=== PATIENT | female | born 1995 | race Caucasian/White ===

== ENCOUNTER 2016-02-24 19:42 | Emergency (ER) | payer BC ==
[~2016-02-24] VITALS: Ht 170.2 cm; Wt 117.9 kg
[~2016-02-24 19:42] MED LIST: ACHD5005 PO; CYCL10TA9 PO; HYDR-3730 PO; ONDA4TAB11 PO; ONDA4TAB8 PO; PANT40SU PO; SUCR1ORA5 PO; SULF1TAB38 PO
[2016-02-24] MEDS ORDERED: PANT40TA3 (19:57)
[2016-02-24] MEDS ORDERED: ESCI20TA45 (19:57)
--- NOTE | 2016-02-24 20:30 | ED Abdominal Pain ---
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 Patient does report nausea without vomiting. Denies diarrhea. States she has had several constipated stools and has had increased pain with bowel movements. She thinks that she may have seen a small amount of blood on the toilet paper with wiping with her last bowel movement. Timing/Duration: 1 Hour, Resolved Prior to Arrival (pain resolved prior to arrival) Severity/Quality: Cramping Location: Periumbilical Radiation: No Radiation Activities at Onset: None Modifying Factors: Worsens With Other (pain resolved on its own) Allergies and Home Medications Allergies Coded Allergies: sertraline HCl (Unverified Allergy, Unknown, HIVES, 12/27/14) Home Medications Escitalopram Oxalate 20 Mg Tablet #30 (Reported) Ondansetron 8 Mg Tab.rapdis #10 8 MG PO Q6H PRN PRN NAUSEA/VOMITING Prescribed by: CHRIS HEATH on 02/24/162142 Pantoprazole Sodium 40 Mg Tablet. #30 (Reported) Review of Systems Constitutional: No chills, No diaphoresis, No dizziness, No fever, No malaise Respiratory: No Symptoms Reported Cardiovascular: No Symptoms Reported Gastrointestinal: See HPIDenies Abdomen Distended, Abdominal Pain ConstipatedDenies Diarrhea, NauseaDenies Poor Appetite, Denies Poor Fluid Intake, Denies Vomiting, Other (possible blood on the toilet paper with wiping) Genitourinary: Denies Burning, Denies Discharge, Denies Frequency, Denies Flank Pain, Denies Hematuria, Denies Pain Musculoskeletal: no symptoms reported Skin: no symptoms reported Psychiatric/Neurological: No Symptoms Reported All Other Systems Reviewed Negative Unless Noted: Yes (Negative excepted noted.) Past Twdfthq-Jnuymw-Fwpvws Hx Patient Social History Alcohol Use: Denies Use Recreational Drug Use: No Smoking Status: Never a Smoker 2nd Hand Smoke Exposure: Yes Recent Foreign Travel: No Contact w/Someone Who Travel: No Recent Infectious Disease Expo: No Recent Hopitalizations: No Physical Abuse Screen: No Sexual Abuse: No Surgeries HX Surgeries: Yes (PILONIDAL CYST/ABSCESS) Surgeries: Adenoidectomy, Gallbladder, Tonsillectomy Respiratory Hx Respiratory Disorders: No Cardiovascular Hx Cardiac Disorders: No Neurological Hx Neurological Disorders: No Reproductive System Hx Reproductive Disorders: No Sexually Transmitted Disease: No HIV/AIDS: No Female Reproductive Disorders: Denies Genitourinary Hx Genitourinary Disorders: No Gastrointestinal Hx Gastrointestinal Disorders: Yes Gastrointestinal Disorders: Gastroesophageal Reflux, Gall Bladder Disease Musculoskeletal Hx Musculoskeletal Disorders: No Endocrine Hx Endocrine Disorders: No HEENT HX ENT Disorders: No HEENT Disorders: Tonsilitis Cancer Hx Cancer: No Psychosocial Hx Psychiatric Problems: Yes Behavioral Health Disorders: Anxiety, Depression Integumentary HX Skin/Integumentary Disorder: No Blood Transfusions Hx Blood Disorders: No Adverse Reaction to a Blood Tr: No Reviewed Nursing Assessment Reviewed/Agree w Nursing PMH: Yes Family Medical History Significant Family History: No Pertinent Family Hx Physical Exam Vital Signs Capillary Refill : Less Than 3 Seconds General Appearance: WD/WN no apparent distress Respiratory: lungs clear normal breath sounds no respiratory distress Cardiovascular: regular rate, rhythm no murmur Gastrointestinal: normal bowel sounds non tender (unable to reproduce tenderness on exam) soft no organomegalyNo distended Rectal: deferred (patient refused rectal exam) Extremities: normal inspection normal capillary refill Back: normal inspection no CVA tenderness Neurologic/Psychiatric: alert normal mood/affect oriented x 3 Skin: normal color warm/dry Progress/Results/Core Measures Results/Orders Lab Results Laboratory Tests Test 02/24/16 20:05 02/24/16 20:13 Range/Units Alanine Aminotransferase (ALT/SGPT) 26 0-55 U/L Albumin 4.1 3.2-4.5 G/DL Alkaline Phosphatase 77 40-136 U/L Anion Gap 12 5-14 MMOL/L Aspartate Amino Transf (AST/SGOT) 19 5-34 U/L BUN/Creatinine Ratio 11 Basophils # (Auto) 0.0 0.0-0.1 10^3/uL Basophils (%) (Auto) 0 0-10 % Blood Urea Nitrogen 8 7-18 MG/DL Calcium Level 9.1 8.5-10.1 MG/DL Carbon Dioxide Level 21 21-32 MMOL/L Chloride Level 108 H 98-107 MMOL/L Creatinine 0.71 0.60-1.30 MG/DL Eosinophils # (Auto) 0.1 0.0-0.3 10^3/uL Eosinophils (%) (Auto) 1 0-10 % Estimat Glomerular Filtration Rate > 60 Glucose Level 116 H 70-105 MG/DL Hematocrit 40 35-52 % Hemoglobin 13.6 11.5-16.0 G/DL Lipase 28 8-78 U/L Lymphocytes # (Auto) 3.4 1.0-4.0 X 10^3 Lymphocytes (%) (Auto) 36 12-44 % Mean Corpuscular Hemoglobin 28 25-34 PG Mean Corpuscular Hemoglobin Concent 34 32-36 G/DL Mean Corpuscular Volume 83 80-99 FL Mean Platelet Volume 10.0 7.4-10.4 FL Monocytes # (Auto) 0.6 0.0-1.0 X 10^3 Monocytes (%) (Auto) 7 0-12 % Neutrophils # (Auto) 5.3 1.8-7.8 X 10^3 Neutrophils (%) (Auto) 56 42-75 % Platelet Count 338 130-400 10^3/uL Potassium Level 3.9 3.6-5.0 MMOL/L Red Blood Count 4.86 4.35-5.85 10^6/uL Red Cell Distribution Width 12.9 10.0-14.5 % Sodium Level 141 135-145 MMOL/L Total Bilirubin 0.1 0.1-1.0 MG/DL Total Protein 7.5 6.4-8.2 G/DL White Blood Count 9.5 4.3-11.0 10^3/uL Urine Amorphous Sediment LARGE DILCIA PHOSPHATE H /LPF Urine Bacteria TRACE /HPF Urine Bilirubin NEGATIVE NEGATIVE Urine Casts NONE /LPF Urine Clarity SLIGHTLY CLOUDY Urine Color YELLOW Urine Crystals PRESENT H /LPF Urine Culture Indicated NO Urine Glucose (UA) NEGATIVE NEGATIVE Urine Ketones NEGATIVE NEGATIVE Urine Leukocyte Esterase NEGATIVE NEGATIVE Urine Mucus NEGATIVE /LPF Urine Nitrite NEGATIVE NEGATIVE Urine Protein NEGATIVE NEGATIVE Urine RBC NONE /HPF Urine RBC (Auto) NEGATIVE NEGATIVE Urine Specific [place] 1.015 L 1.016-1.022 Urine Squamous Epithelial Cells RARE /HPF Urine Urobilinogen NORMAL NORMAL MG/DL Urine WBC RARE /HPF Urine pH 7 5-9 CHRIS Marinelli Cbc With Automated Diff (02/24/16 20:39) Comprehensive Metabolic Panel (02/24/16 20:39) Lipase (02/24/16 20:39) Saline Lock/Iv-Start (02/24/16 20:39) Ondansetron Injection (Zofran Injectio (02/24/16 20:45) Ns Iv 1000 Ml (Sodium Chloride 0.9%) (02/24/16 20:39) Ua Culture If Indicated (02/24/16 21:08) Iv Push Other Spatial Scientist Ed (02/24/16 ) Medications Given in ED Vital Signs/I&O Blood Pressure Mean: 108 Point of Care Testing Urine -Bedside: Negative Departure Communication Progress Notes Patient seen and evaluated. All laboratory findings discussed with the patient. Patient is directed follow-up with primary care physician for recheck. Patient is also advised to discuss needing possible rectal exam versus colonoscopy as an outpatient with her primary care physician. Patient voices understanding and agrees with the treatment plan. Impression Impression: Primary Impression: Abdominal pain Qualified Code: R10.33 - Periumbilical pain Additional Impression: Nausea & vomiting Qualified Code: R11.2 - Nausea with vomiting, unspecified Disposition: 01 HOME, SELF-CARE Condition: Improved Departure-Patient Inst. Decision time for Depature: 21:41 Referrals: CHER CAMPBELL MD (PCP/Family) Primary Care Physician Patient Instructions: Acute Abdomen (Belly Pain), Adult (DC), Nausea and Vomiting, Adult (DC) Add. Discharge Instructions: All discharge instructions reviewed with patient and/or family. Voiced understanding. Medications as instructed. Tylenol [id number] as directed for pain or fever. Ibuprofen 800 mg by mouth every 8 hours as needed for pain or fever. Push fluids. Clear liquid diet until symptoms improve, then increase diet slowly to a bland, low-fat diet. Follow-up with family practitioner for recheck. Return to the emergency department for worsened symptoms or any other concerns. Scripts Ondansetron (Ondansetron Odt)8 Mg Tab.rapdis8 Mg PO Q6H PRN NAUSEA/VOMITING #10 TAB Ref 0 Prov:CHRIS HEATH 02/24/16 CHRIS HEATH Feb 24, 2016 20:30 TAB Ref 0 Prov:CHRIS HEATH 02/24/16 CHRIS HEATH Feb 24, 2016 20:30
[2016-02-24] MEDS ORDERED: NS IV 1000 ML 1,000 ML IV ONE (20:39)
[2016-02-24 20:44] LABS: BASOPHILS % (AUTO) 0 % (0-10); EOSINOPHILS # (AUTO) 0.1 10^3/uL (0.0-0.3); EOSINOPHILS % (AUTO) 1 % (0-10); LYMPHOCYTES # (AUTO) 3.4 X 10^3 (1.0-4.0); LYMPHOCYTES % (AUTO) 36 % (12-44); MEAN CORPUSCULAR HEMOGLOBIN 28 PG (25-34); MEAN CORPUSCULAR HGB CONC 34 G/DL (32-36); MEAN CORPUSCULAR VOLUME 83 FL (80-99); MONOCYTES # (AUTO) 0.6 X 10^3 (0.0-1.0); MONOCYTES % (AUTO) 7 % (0-12); NEUTROPHILS # (AUTO) 5.3 X 10^3 (1.8-7.8); NEUTROPHILS % (AUTO) 56 % (42-75); PLATELET COUNT 338 10^3/uL (130-400); RED BLOOD COUNT 4.86 10^6/uL (4.35-5.85); RED CELL DISTRIBUTION WIDTH 12.9 % (10.0-14.5); WHITE BLOOD COUNT 9.5 10^3/uL (4.3-11.0)
[2016-02-24] MEDS ORDERED: ONDANSETRON 4 MG/2 ML (SDV) Z0FRAN IVP ONE (20:45)
[2016-02-24 20:58] LABS: ALANINE AMINOTRANSFERASE 26 U/L (0-55); ALBUMIN 4.1 G/DL (3.2-4.5); ANION GAP 12 MMOL/L (5-14); ASPARTATE AMINO TRANSFERASE 19 U/L (5-34); BILIRUBIN,TOTAL 0.1 MG/DL (0.1-1.0); BLOOD UREA NITROGEN 8 MG/DL (7-18); BUN/CREATININE RATIO 11; CALCIUM 9.1 MG/DL (8.5-10.1); CARBON DIOXIDE 21 MMOL/L (21-32); CHLORIDE 108 MMOL/L (98-107); CREATININE SERUM 0.71 MG/DL (0.60-1.30); GFR ESTIMATED > 60; GLUCOSE 116 MG/DL (70-105); LIPASE 28 U/L (8-78); POTASSIUM 3.9 MMOL/L (3.6-5.0); SODIUM 141 MMOL/L (135-145); TOTAL PROTEIN 7.5 G/DL (6.4-8.2)
[2016-02-24 21:15] LABS: PH,URINE 7 (5-9)
[2016-02-24 21:16] LABS: BILIRUBIN,URINE NEGATIVE (NEGATIVE); KETONES,URINE NEGATIVE (NEGATIVE); LEUKOCYTE ESTERASE ,URINE NEGATIVE (NEGATIVE); NITRITE,URINE NEGATIVE (NEGATIVE); PROTEIN,URINE NEGATIVE (NEGATIVE); UROBILINOGEN,URINE NORMAL (NORMAL)
[2016-02-24 21:32] LABS: SQUAMOUS EPITHELIAL CELL,UR RARE /HPF; WBC,URINE RARE /HPF
[2016-02-24] MEDS ORDERED: ONDA8TAB13 PO (21:43)
[2016-02-24 21:56] VITALS: BP 131/89
== END 2016-02-24 21:56 | disposition home or self-care (01) ==
LOC: EDUNIT# 19:42 → ER 19:44
DX: R10.33 Periumbilical pain (principal); R11.2 Nausea with vomiting, unspecified
CPT/HCPCS: 36415; 80053; 81000; 83690; 84703; 85025; 96361; 96374

== ENCOUNTER 2018-12-27 06:46 | Emergency (ER) | payer SELFPAY ==
[~2018-12-27] VITALS: Ht 170 cm; Wt 128.7 kg
[~2018-12-27 06:46] MED LIST changes: +ESCI20TA45; +ONDA8TAB13 PO; +PANT40TA3
--- NOTE | 2018-12-27 07:06 | ED General ---
General Chief Complaint: Abdominal/GI Problems Stated Complaint: ABD PAIN Source of Information: Patient History of Present Illness Date Seen by Provider: Dec 27, 2018 Time Seen by Provider: 07:05 Initial Comments PT ARRIVES VIA POV FROM HOME C/O LOWER ABDOMINAL PAIN SINCE 0500 THIS AM STATES SHE HAD A BM AROUND 0500, BUT "COULDN'T GET IT ALL OUT" STATES SHE SPRAYED WATER INTO HER RECTUM WITH A SHOWER HOSE--REMOVED THE SHOWER HEAD FIRST, HAD HAD A SOFT, SMALL BM JUST PRIOR TO ARRIVAL STATES SHE HAD LOWER ABDOMINAL PAIN AND "STARTED FREAKING OUT" SO CAME TO ER STATES SHE "READ SOMETHING SOMEWHERE" NO NAUSEA/VOMITING NO URINARY SYMPTOMS LMP WAS SOMETIME IN NOVEMBER, NO CONTROL PCP: JOSH, DR. CAMPBELL Allergies and Home Medications Allergies Coded Allergies: sertraline HCl (Unverified Allergy, Unknown, HIVES, 12/27/14) Home Medications Hyoscyamine Sulfate 0.125 Mg Tab.subl, 1-2 TAB SL Q4H Prescribed by: BRE DOHERTY on 12/27/18 0924 Ondansetron 8 Mg Tab.rapdis, 8 MG PO Q6H PRN for NAUSEA/VOMITING Prescribed by: CHRIS HEATH on 02/24/16 2143 Patient Home Medication List Home Medication List Reviewed: Yes Review of Systems Review of Systems Constitutional: no symptoms reported; No fever Respiratory: no symptoms reported Cardiovascular: no symptoms reported Gastrointestinal: see HPI, abdominal pain, constipation; No nausea, No vomiting Genitourinary: no symptoms reported : No LMP: Dec 10, 2018 Musculoskeletal: no symptoms reported Skin: no symptoms reported Psychiatric/Neurological: No Symptoms Reported Hematologic/Lymphatic: No Symptoms Reported Immunological/Allergic: no symptoms reported Past Pwohmco-Cjrief-Ubtpze Hx Patient Social History Alcohol Use: Rarely Uses Recreational Drug Use: No Smoking Status: Never a Smoker 2nd Hand Smoke Exposure: Yes Recent Foreign Travel: No Contact w/Someone Who Travel: No Recent Hopitalizations: No Past Medical History Surgeries: Yes (PILONIDAL CYST/ABSCESS REMOVED) Adenoidectomy, Gallbladder, Tonsillectomy Respiratory: No Cardiac: No Neurological: No : No Reproductive Disorders: No Female Reproductive Disorders: Denies Sexually Transmitted Disease: No HIV/AIDS: No Genitourinary: No Gastrointestinal: Yes (S/P OC) Gastroesophageal Reflux, Gall Bladder Disease Musculoskeletal: No Endocrine: Yes (MORBID OBESITY) HEENT: Yes (S/P T&A) Tonsilitis Cancer: No Psychosocial: Yes Anxiety, Depression Integumentary: Yes (PILONIDAL CYST/ABSCESS REMOVED) Adverse Reaction/Blood Tranf: No Family Medical History No Pertinent Family Hx Physical Exam Vital Signs Vital Signs - First Documented 12/27/18 07:05 Temp 36.0 Pulse 116 Resp 18 B/P (MAP) 134/93 (107) Pulse Ox 99 Capillary Refill : Height, Weight, BMI Height: 5'7" Weight: 260lbs. oz. 117.541672ux; 43.76 BMI Method:Stated General Appearance: No Apparent Distress, Obese (MORBIDLY), Other (WALKS UPRIGHT AND MOVES WITHOUT DIFFICULTY. DOES NOT APPEAR TO BE IN ANY DISCOMFORT OR DISTRESS) HEENT: PERRL/EOMI Neck: Full Range of Motion Respiratory: Normal Breath Sounds, No Respiratory Distress Cardiovascular: Regular Rate, Rhythm, No Murmur Gastrointestinal: Soft, Tenderness (MILD SUPRAPUBIC TENDERNESS) Back: No CVA Tenderness Extremity: Normal Inspection Neurologic/Psychiatric: Alert, Oriented x3, No Motor/Sensory Deficits, fence builder II- XII Norm as Tested Skin: Normal Color, Warm/Dry Progress/Results/Core Measures Suspected Sepsis SIRS Temperature: Pulse: Respiratory Rate: Laboratory Tests 12/27/18 07:23: White Blood Count 8.7 Blood Pressure / Mean: Laboratory Tests 12/27/18 07:23: Creatinine 0.77, Platelet Count 295, Total Bilirubin 0.3 Results/Orders Lab Results Laboratory Tests Test 12/27/18 07:23 12/27/18 07:29 Range/Units White Blood Count 8.7 4.3-11.0 10^3/uL Red Blood Count 4.79 4.35-5.85 10^6/uL Hemoglobin 13.2 11.5-16.0 G/DL Hematocrit 40 35-52 % Mean Corpuscular Volume 83 80-99 FL Mean Corpuscular Hemoglobin 28 25-34 PG Mean Corpuscular Hemoglobin Concent 33 32-36 G/DL Red Cell Distribution Width 12.9 10.0-14.5 % Platelet Count 295 130-400 10^3/uL Mean Platelet Volume 9.8 7.4-10.4 FL Neutrophils (%) (Auto) 66 42-75 % Lymphocytes (%) (Auto) 26 12-44 % Monocytes (%) (Auto) 8 0-12 % Eosinophils (%) (Auto) 1 0-10 % Basophils (%) (Auto) 0 0-10 % Neutrophils # (Auto) 5.7 1.8-7.8 X 10^3 Lymphocytes # (Auto) 2.2 1.0-4.0 X 10^3 Monocytes # (Auto) 0.7 0.0-1.0 X 10^3 Eosinophils # (Auto) 0.0 0.0-0.3 10^3/uL Basophils # (Auto) 0.0 0.0-0.1 10^3/uL Sodium Level 140 135-145 MMOL/L Potassium Level 4.0 3.6-5.0 MMOL/L Chloride Level 107 98-107 MMOL/L Carbon Dioxide Level 24 21-32 MMOL/L Anion Gap 9 5-14 MMOL/L Blood Urea Nitrogen 11 7-18 MG/DL Creatinine 0.77 0.60-1.30 MG/DL Estimat Glomerular Filtration Rate > 60 BUN/Creatinine Ratio 14 Glucose Level 115 H 70-105 MG/DL Calcium Level 9.4 8.5-10.1 MG/DL Corrected Calcium 9.2 8.5-10.1 MG/DL Total Bilirubin 0.3 0.1-1.0 MG/DL Aspartate Amino Transf (AST/SGOT) 18 5-34 U/L Alanine Aminotransferase (ALT/SGPT) 27 0-55 U/L Alkaline Phosphatase 65 40-136 U/L Total Protein 7.5 6.4-8.2 GM/DL Albumin 4.2 3.2-4.5 GM/DL Urine Color YELLOW Urine Clarity CLEAR Urine pH 7.0 5-9 Urine Specific [place] <=1.005 1.016-1.022 Urine Protein NEGATIVE NEGATIVE Urine Glucose (UA) NEGATIVE NEGATIVE Urine Ketones NEGATIVE NEGATIVE Urine Nitrite NEGATIVE NEGATIVE Urine Bilirubin NEGATIVE NEGATIVE Urine Urobilinogen 0.2 < = 1.0 MG/DL Urine Leukocyte Esterase NEGATIVE NEGATIVE Urine RBC (Auto) NEGATIVE NEGATIVE Urine RBC NONE /HPF Urine WBC NONE /HPF Urine Squamous Epithelial Cells RARE /HPF Urine Crystals NONE /LPF Urine Bacteria NEGATIVE /HPF Urine Casts NONE /LPF Urine Mucus NEGATIVE /LPF Urine Culture Indicated NO Urine Test NEGATIVE NEGATIVE My Orders Orders - BRE DOHERTY DO Ed Iv/Invasive Line Start (12/27/18 07:04) Cbc With Automated Diff (12/27/18 07:04) Comprehensive Metabolic Panel (12/27/18 07:04) Ua Culture If Indicated (12/27/18 07:04) Acute Abd Series (12/27/18 07:04) Hcg,Qualitative Urine (12/27/18 07:31) Ct Abd/Pelv W (Appendicitis) (12/27/18 08:27) Iohexol Injection (Omnipaque 350 Mg/Ml 1 (12/27/18 08:30) Received Contrast (Hold Metformin- Contr (12/27/18 08:30) Sodium Chloride Flush (Catheter Flush Sy (12/27/18 08:30) Ns (Ivpb) (Sodium Chloride 0.9% Ivpb Bag (12/27/18 08:30) Medications Given in ED Vital Signs/I&O Capillary Refill : Progress Note : Progress Note UNEVENTFUL ER STAY Diagnostic Imaging Comments ABDOMEN XRAYS--NO ACUTE PROCESS CT ABDOMEN/PELVIS--NO ACUTE PROCESS, MILD SPLENOMEGALY, INCREASED SINCE 2014. NO FOCAL MASS/LESION PER RADIOLOGIST REPORTS AT 0911 Reviewed: Reviewed by Me Departure Impression Primary Impression: Lower abdominal pain Disposition: 01 HOME, SELF-CARE Condition: Stable Departure-Patient Inst. Referrals: CHER CAMPBELL MD (PCP/Family) Primary Care Physician Patient Instructions: Acute Abdomen (Belly Pain), Adult (DC) Add. Discharge Instructions: OVER THE COUNTER MIRALAX NEEDED FOR CONSTIPATION YOU MAY USE DULCOLAX SUPPOSITORIES NEEDED FOR BM FOLLOW UP WITH YOUR DR IN 2-3 DAYS IF NO BETTER All discharge instructions reviewed with patient and/or family. Voiced u nderstanding. Scripts Hyoscyamine Sulfate (Levsin-Sl) 0.125 Mg Tab.subl 1-2 TAB SL Q4H for Abdominal Pain, #10 TAB Prov: BRE DOHERTY DO 12/27/18 BRE DOHERTY DO Dec 27, 2018 07:06 POS
[2018-12-27 07:32] LABS: BASOPHILS % (AUTO) 0 % (0-10); EOSINOPHILS % (AUTO) 1 % (0-10); HEMATOCRIT 40 % (35-52); HEMOGLOBIN 13.2 G/DL (11.5-16.0); LYMPHOCYTES # (AUTO) 2.2 X 10^3 (1.0-4.0); LYMPHOCYTES % (AUTO) 26 % (12-44); MEAN CORPUSCULAR HEMOGLOBIN 28 PG (25-34); MEAN CORPUSCULAR HGB CONC 33 G/DL (32-36); MEAN CORPUSCULAR VOLUME 83 FL (80-99); MEAN PLATELET VOLUME 9.8 FL (7.4-10.4); MONOCYTES # (AUTO) 0.7 X 10^3 (0.0-1.0); MONOCYTES % (AUTO) 8 % (0-12); NEUTROPHILS # (AUTO) 5.7 X 10^3 (1.8-7.8); NEUTROPHILS % (AUTO) 66 % (42-75); PLATELET COUNT 295 10^3/uL (130-400); RED CELL DISTRIBUTION WIDTH 12.9 % (10.0-14.5); WHITE BLOOD COUNT 8.7 10^3/uL (4.3-11.0)
[2018-12-27 07:43] LABS: BILIRUBIN,URINE NEGATIVE (NEGATIVE); CLARITY,URINE CLEAR; COLOR,URINE YELLOW; GLUCOSE, URINE (UA) NEGATIVE (NEGATIVE); KETONES,URINE NEGATIVE (NEGATIVE); LEUKOCYTE ESTERASE ,URINE NEGATIVE (NEGATIVE); NITRITE,URINE NEGATIVE (NEGATIVE); PROTEIN,URINE NEGATIVE (NEGATIVE)
[2018-12-27 07:50] LABS: ALANINE AMINOTRANSFERASE 27 U/L (0-55); ALBUMIN 4.2 GM/DL (3.2-4.5); ALKALINE PHOSPHATASE 65 U/L (40-136); BILIRUBIN,TOTAL 0.3 MG/DL (0.1-1.0); BUN/CREATININE RATIO 14; CALCIUM 9.4 MG/DL (8.5-10.1); CARBON DIOXIDE 24 MMOL/L (21-32); CHLORIDE 107 MMOL/L (98-107); CREATININE SERUM 0.77 MG/DL (0.60-1.30); GFR ESTIMATED > 60; GLUCOSE 115 MG/DL (70-105); SODIUM 140 MMOL/L (135-145); TOTAL PROTEIN 7.5 GM/DL (6.4-8.2)
[2018-12-27 08:00] LABS: BACTERIA,URINE NEGATIVE /HPF; SQUAMOUS EPITHELIAL CELL,UR RARE /HPF
--- NOTE | 2018-12-27 08:21 | Diagnostic Imaging Report ---
INDICATION: Abdominal pain COMPARISON: 10/19/2014 TECHNIQUE: 4 radiographs of the abdomen and chest dated 12/27/2018 FINDINGS: The cardiac silhouette and pulmonary vasculature within normal limits. The lungs are clear. No pleural effusion. No pneumothorax. No acute osseous abnormality within the chest. Gas and stool is noted within the colon. No dilated loops of small bowel. No differential air-fluid levels. No free air. No suspicious calcifications overlying the renal shadows. No acute osseous abnormality. IMPRESSION: No acute abnormality. Dictated by: Dictated on workstation # [id number]
[2018-12-27] MEDS ORDERED: CATHETER FLUSH 10 ML SYR IV PRN (08:30)
[2018-12-27] MEDS ORDERED: NS 100 ML (IVPB) BAG IV ONE (08:30)
[2018-12-27] MEDS ORDERED: HOLD METFORMIN - RECEIVED CONTRAST 20 ML VIAL IV SCH (08:30)
[2018-12-27] MEDS ORDERED: IOHEXOL 350 MG/ML 100 ML (OMNIPAQUE 350) VIAL IV ONE (08:30)
--- NOTE | 2018-12-27 09:11 | Diagnostic Imaging Report ---
PROCEDURE: CT abdomen and pelvis with contrast, rule out appendicitis. TECHNIQUE: Multiple contiguous axial images were obtained through the abdomen and pelvis after the administration of intravenous contrast. INDICATION: Abdominal pain, nausea COMPARISON: 12/27/2014 FINDINGS: The visualized lung bases are clear. The liver, adrenal glands, and pancreas are unremarkable. The spleen is enlarged measuring 16.6 cm in craniocaudal dimension, slightly increased in size since 2015. No focal splenic mass. The gallbladder is not visualized, likely surgically absent. The bilateral kidneys and ureters are unremarkable. No aneurysmal dilatation of the abdominal aorta. The appendix is unremarkable. The urinary bladder is unremarkable. Nabothian cysts within the cervix. The uterus and adnexa are unremarkable for age. No bowel obstruction or pneumatosis. No significant adenopathy, free air, or free fluid within the abdomen or pelvis. The osseous structures are stable without acute osseous abnormality. IMPRESSION: Mild splenomegaly, increased since 2014. No focal splenic mass lesion. Cholecystectomy. Additional findings as above. Dictated by: Dictated on workstation # [id number]
[2018-12-27] MEDS ORDERED: HYOS0.1283 SL (09:24)
[2018-12-27 09:48] VITALS: BP 141/84
== END 2018-12-27 09:50 | disposition home or self-care (01) ==
LOC: EDUNIT# 06:46 → ER 06:49
DX: R10.30 Lower abdominal pain, unspecified (principal); K21.9 Gastro-esophageal reflux disease without esophagitis; F41.9 Anxiety disorder, unspecified; F32.9 Major depressive disorder, single episode, unspecified; E66.01 Morbid (severe) obesity due to excess calories; Z88.8 Allergy status to other drugs, medicaments and biological substances; Z68.41 Body mass index [BMI] 40.0-44.9, adult; Z77.22 Contact with and (suspected) exposure to environmental tobacco smoke (acute) (chronic); Z90.89 Acquired absence of other organs
CPT/HCPCS: 36415; 74022; 74177; 80053; 81000; 84703; 85025

== ENCOUNTER 2019-07-19 16:04 | Emergency (ER) | payer SELFPAY ==
[~2019-07-19] VITALS: Ht 170 cm; Wt 126.0 kg
[~2019-07-19 16:04] MED LIST changes: +HYOS0.1283 SL
[2019-07-19 16:55] VITALS: BP 128/84
[2019-07-19] MEDS ORDERED: PERM60CR4 TP (17:02)
--- NOTE | 2019-07-19 17:02 | ED Integumentary General ---
General Stated Complaint: RASH Source: patient Exam Limitations: no limitations History of Present Illness Date Seen by Provider: Jul 19, 2019 Time Seen by Provider: 16:59 Initial Comments 23 year old female who presents to the ER with rash on her right forearm for the past week. Reports that her mother was recently treated for scabies. Her brother is here with similar rash as a patient also. Timing/Duration: week Associated Symptoms: rash Allergies and Home Medications Allergies Coded Allergies: sertraline HCl (Unverified Allergy, Unknown, HIVES, 12/27/14) Home Medications Hyoscyamine Sulfate 0.125 Mg Tab.subl, 1-2 TAB SL Q4H Prescribed by: BRE DHOERTY on 12/27/18 0924 Ondansetron 8 Mg Tab.rapdis, 8 MG PO Q6H PRN for NAUSEA/VOMITING Prescribed by: CHRIS HEATH on 02/24/162142 Permethrin 60 Gm Cream..g., 60 GM TP ONCE Prescribed by: ABHINAV GALINDO on 07/19/19 1702 Patient Home Medication List Home Medication List Reviewed: Yes Review of Systems Review of Systems Constitutional: see HPI; No chills, No fever Skin: see HPI, pruritus, rash All Other Systems Reviewed Negative Unless Noted: Yes Past Kmtaovp-Kschyf-Atteoo Hx Past Med/Social Hx: Reviewed Nursing Past Med/Soc Hx Patient Social History 2nd Hand Smoke Exposure: Yes Recent Foreign Travel: No Contact w/Someone Who Travel: No Recent Hopitalizations: No Past Medical History Surgeries: Yes (PILONIDAL CYST/ABSCESS REMOVED) Adenoidectomy, Gallbladder, Tonsillectomy Respiratory: No Cardiac: No Neurological: No Reproductive Disorders: No Female Reproductive Disorders: Denies Sexually Transmitted Disease: No HIV/AIDS: No Genitourinary: No Gastrointestinal: Yes (S/P OC) Gastroesophageal Reflux, Gall Bladder Disease Musculoskeletal: No Endocrine: Yes (MORBID OBESITY) HEENT: Yes (S/P T&A) Tonsilitis Cancer: No Psychosocial: Yes Anxiety, Depression Integumentary: Yes (PILONIDAL CYST/ABSCESS REMOVED) Blood Disorders: No Adverse Reaction/Blood Tranf: No Family Medical History Reviewed Nursing Family Hx No Pertinent Family Hx Physical Exam Vital Signs Vital Signs - First Documented 07/19/19 16:55 Temp 37.0 Pulse 85 Resp 18 B/P (MAP) 128/84 (99) Pulse Ox 97 O2 Delivery Room Air Capillary Refill : General Appearance: WD/WN, no apparent distress Cardiovascular: normal peripheral pulses, regular rate, rhythm, no edema, no gallop, no JVD, no murmur Respiratory: chest non-tender, lungs clear, normal breath sounds, no respiratory distress, no accessory muscle use Skin: normal color, warm/dry, rash Skin Problem Location: upper extremities Skin Problem Character: other Progress/Results/Core Measures Results/Orders Vital Signs/I&O 07/19/19 16:55 Temp 37.0 Pulse 85 Resp 18 B/P (MAP) 128/84 (99) Pulse Ox 97 O2 Delivery Room Air Departure Impression Primary Impression: Scabies Disposition: HOME, SELF-CARE Condition: Stable/Unchanged Departure-Patient Inst. Decision time for Depature: 17:01 Referrals: CHER CAMPBELL MD (PCP/Family) Primary Care Physician Patient Instructions: Scabies Add. Discharge Instructions: Use medication as directed. Be sure you cleaning her entire house thoroughly especially your bedding. Follow-up with your primary care provider within 1 week for recheck. Return back to the emergency room for worsening symptoms or concerns as needed. Scripts Permethrin (Permethrin) 60 Gm Cream..g. 60 GM TP ONCE for 1 Day, #1 TUBE Prov: ABHINAV GALINDO 07/19/19 ABHINAV GALINDO Jul 19, 2019 17:02
--- OUTSIDE RECORDS SUMMARY | 2019-07-19 18:01 | XMS REPORT | Continuity of Care Document ---
Author Organization Unknown Address Unknown Phone Unavailable Allergies Active Description Code Type Severity Reaction Onset Reported/Identified Relationship to Patient Clinical Status Yes ZOLOFT UNKNOWN UNKNOWN Yes sertraline HCl [id number] Dr bassett Allergy Unknown HIVES 12/27/2014 Medications There is no data. Problems Date Dx Coded Attending Type Code Diagnosis Diagnosed By 10/25/2009 Ot 845.00 10/25/2009 Ot 959.7 10/25/2009 Ot E000.8 10/25/2009 Ot E001.1 10/25/2009 Ot E849.0 10/25/2009 Ot E927.8 04/08/2010 Ot 789.09 04/10/2010 Ot 789.09 06/11/2010 Ot 724.5 06/11/2010 Ot 959.19 06/11/2010 Ot E000.8 06/11/2010 Ot E005.9 06/11/2010 Ot E928.8 06/11/2010 Ot V57.1 06/20/2010 Ot 845.00 06/20/2010 Ot 959.7 06/20/2010 Ot E000.8 06/20/2010 Ot E849.4 06/20/2010 Ot E927.0 05/02/2011 Ot 682.5 CELL ULITIS OF BUTTOCK 05/04/2011 Ot V58.31 ENC OUNTER FOR CHANGE OR REMOVAL OF SURGI 07/15/2011 Ot 685.0 LORRAINE NIDAL CYST W ABSCESS 03/07/2013 BRE DOHERTY DO Ot 845.00 SPRAIN OF ANKLE NOS 03/07/2013 BRE DOHERTY DO Ot 959.7 LOWER LEG INJURY NOS 03/07/2013 BRE DOHERTY DO Ot E000.8 OTHER EXTERNAL CAUSE STATUS 03/07/2013 BRE DOHERTY DO Ot E928.9 ACCIDENT NOS 10/19/2014 Ot 786.52 10/19/2014 Ot 626.0 10/19/2014 Ot 724.5 10/19/2014 Ot 685.1 10/19/2014 Ot V72.63 10/19/2014 Ot V74.8 10/19/2014 BRE DOHERTY DO Ot 427.69 PREMATURE BEATS NEC 10/19/2014 BRE DOHERTY DO Ot 785.1 PALPITATIONS 10/19/2014 BRE DOHERTY DO Ot 786.50 CHEST PAIN NOS 10/24/2014 BRE DOHERTY DO Ot 427.69 10/24/2014 CHAS BRE ACE Ot 785.1 10/24/2014 CHAS BRE ACE Ot 786.50 11/02/2014 CHAS BRE ACE Ot 427.69 11/02/2014 CHAS BRE ACE Ot 785.1 11/02/2014 BRE DOHERTY DO Ot 786.50 12/27/2014 Ot 786.52 12/27/2014 Ot 626.0 12/27/2014 Ot 724.5 12/27/2014 Ot 685.1 12/27/2014 Ot V72.63 12/27/2014 Ot V74.8 12/28/2014 CHRIS HARRELL Ot I88.0 NONSPECIFIC MESENTERIC LYMPHADENITIS 12/28/2014 CHRIS HARRELL Ot R11.2 NAUSEA WITH VOMITING, UNSPECIFIED 12/28/2014 CHRIS HARRELL Ot R50.9 FEVER, UNSPECIFIED 12/28/2014 Ot 786.52 12/28/2014 Ot 626.0 12/28/2014 Ot 724.5 12/28/2014 Ot 685.1 12/28/2014 Ot V72.63 12/28/2014 Ot V74.8 03/18/2015 BRE DOHERTY DO Ot E66.9 OBESITY, UNSPECIFIED 03/18/2015 BRE DOHERTY DO Ot K21.9 GASTRO-ESOPHAGEAL REFLUX DISEASE WITHOUT 03/28/2015 Ot 786.52 03/28/2015 Ot 626.0 03/28/2015 Ot 724.5 03/28/2015 Ot 685.1 03/28/2015 Ot V72.63 03/28/2015 Ot V74.8 03/28/2015 Ot 786.52 03/28/2015 Ot 626.0 03/28/2015 Ot 724.5 03/28/2015 Ot 685.1 03/28/2015 Ot V72.63 03/28/2015 Ot V74.8 04/05/2015 ADEOLA JALLOH MD Ot K80.10 CALCULUS OF GALLBLADDER W CHRONIC CHOLEC 04/16/2015 CHER CAMPBELL MD Ot R10.13 02/24/2016 CHRIS HARRELL Ot R10.33 PERIUMBILICAL PAIN 02/24/2016 CHRIS HARRELL Ot R11.2 NAUSEA WITH VOMITING, UNSPECIFIED 02/24/2016 Ot 685.1 LORRAINE NIDAL CYST W/O ABSC 02/24/2016 Ot V72.63 PRE -PROCEDURAL LABORATORY EXAMINATION 02/24/2016 Ot V74.8 SCRE EN-BACTERIAL DIS NEC 02/24/2016 CHER CAMPBELL MD Ot R10.13 EPIGASTRIC PAIN 02/24/2016 ADEOLA JALLOH MD Ot K80.20 CALCULUS OF GALLBLADDER W/O CHOLECYSTITI 02/24/2016 ADEOLA JALLOH MD Ot Z01.81 8 ENCOUNTER FOR OTHER PREPROCEDURAL EXAMIN 02/26/2016 CHRIS HARRELL Ot R10.33 PERIUMBILICAL PAIN 02/26/2016 CHRIS HARRELL Ot R11.2 NAUSEA WITH VOMITING, UNSPECIFIED 03/02/2016 CHRIS HARRELL Ot R10.33 PERIUMBILICAL PAIN 03/02/2016 CHRIS HARRELL Ot R11.2 NAUSEA WITH VOMITING, UNSPECIFIED 12/27/2018 CHER CAMPBELL MD Ot R10.13 EPIGASTRIC PAIN 12/27/2018 ADEOLA JALLOH MD Ot K80.20 CALCULUS OF GALLBLADDER W/O CHOLECYSTITI 12/27/2018 ADEOLA JALLOH MD Ot Z01.81 8 ENCOUNTER FOR OTHER PREPROCEDURAL EXAMIN 12/29/2018 BRE DOHERTY DO Ot E66.01 MORBID (SEVERE) OBESITY DUE TO EXCESS CA 12/29/2018 BRE DOHERTY DO Ot F32.9 MAJOR DEPRESSIVE DISORDER, SINGLE EPISOD 12/29/2018 BRE DOHERTY DO Ot F41.9 ANXIETY DISORDER, UNSPECIFIED 12/29/2018 BRE DOHERTY DO Ot K21.9 GASTRO-ESOPHAGEAL REFLUX DISEASE WITHOUT 12/29/2018 BRE DOHERTY DO Ot R10.30 LOWER ABDOMINAL PAIN, UNSPECIFIED 12/29/2018 BRE DOHERTY DO Ot Z68.41 BODY MASS INDEX (BMI) 40.0-44.9, ADULT 12/29/2018 CHAS BRE ACE Ot Z77.22 CNTCT W AND EXPSR TO ENVIRON TOBACCO SMO 12/29/2018 CHAS BRE ACE Ot Z88.8 ALLERGY STATUS TO OTH DRUG/MEDS/BIOL SUB 12/29/2018 CHAS BRE ACE Ot Z90.89 ACQUIRED ABSENCE OF OTHER ORGANS 01/02/2019 CHAS BRE ACE Ot E66.01 MORBID (SEVERE) OBESITY DUE TO EXCESS CA 01/02/2019 BRE DOHERTY DO Ot F32.9 MAJOR DEPRESSIVE DISORDER, SINGLE EPISOD 01/02/2019 CHAS BRE ACE Ot F41.9 ANXIETY DISORDER, UNSPECIFIED 01/02/2019 CHAS BRE ACE Ot K21.9 GASTRO-ESOPHAGEAL REFLUX DISEASE WITHOUT 01/02/2019 CHAS BRE ACE Ot R10.30 LOWER ABDOMINAL PAIN, UNSPECIFIED 01/02/2019 CHAS BRE ACE Ot Z68.41 BODY MASS INDEX (BMI) 40.0-44.9, ADULT 01/02/2019 BRE DOHERTY DO Ot Z77.22 CNTCT W AND EXPSR TO ENVIRON TOBACCO SMO 01/02/2019 CHAS BRE ACE Ot Z88.8 ALLERGY STATUS TO OTH DRUG/MEDS/BIOL SUB 01/02/2019 CHAS BRE ACE Ot Z90.89 ACQUIRED ABSENCE OF OTHER ORGANS 04/20/2019 STERLING EDMONDS 923.03 CONTUSION OF UPPER ARM 04/20/2019 STERLING EDMONDS S40.02 9A CONTUSION OF UNSPECIFIED UPPER ARM, INITIAL ENCOUNTER Procedures There is no data. Results Test Result Range Complete blood count (CBC) with automate d white blood cell (WBC) differential - 02/24/16 20:05 Blood leukocytes automated count (number/volume) 9.5 10*3/uL 4.3-11.0 Blood erythrocytes automated count (number/volume) 4.86 10*6/uL 4.35-5.85 Venous blood hemoglobin measurement (mass/volume) 13.6 g/dL 11.5-16.0 Blood hematocrit (volume fraction) 40 % 35-52 Automated erythrocyte mean corpuscular volume 83 [ foz_us] 80-99 Automated erythrocyte mean corpuscular h emoglobin (mass per erythrocyte) 28 pg 25-34 Automated erythrocyte mean corpuscular h emoglobin concentration measurement (mass/volume) 34 g/dL 32-36 Automated erythrocyte distribution width ratio 12. 9 % 10.0- 14.5 Automated blood platelet count (count/volume) 338 10*3/uL 130-400 Automated blood platelet mean volume measurement 10.0 [foz_us] 7.4-10.4 Automated blood neutrophils/100 leukocytes 56 % 42-75 Automated blood lymphocytes/100 leukocytes 36 % 12-44 Blood monocytes/100 leukocytes 7 % 0-12 Automated blood eosinophils/100 leukocytes 1 % 0-10 Automated blood basophils/100 leukocytes 0 % 0-10 Blood neutrophils automated count (number/volume) 5.3 10*3 1.8-7.8 Blood lymphocytes automated count (number/volume) 3.4 10*3 1.0-4.0 Blood monocytes automated count (number/volume) 0. 6 10*3 0.0-1.0 Automated eosinophil count 0.1 10*3/uL 0 .0-0.3 Automated blood basophil count (count/volume) 0.0 10*3/uL 0.0-0.1 Comprehensive metabolic panel - 02/24/16 20:05 Serum or plasma sodium measurement (moles/volume) 141 mmol/L 135-145 Serum or plasma potassium measurement (moles/volume) 3.9 mmol/L 3.6-5.0 Serum or plasma chloride measurement (moles/volume) 108 mmol/L 98-107 Carbon dioxide 21 mmol/L 21-32 Serum or plasma anion gap determination (moles/volume) 12 mmol/L 5-14 Serum or plasma urea nitrogen measurement (mass/volume ) 8 mg/dL 7-18 Serum or plasma creatinine measurement (mass/volume) 0.71 mg/dL 0.60-1.30 Serum or plasma urea nitrogen/creatinine mass ratio 11 NRG Serum or plasma creatinine measurement w ith calculation of estimated glomerular filtration rate > NRG Serum or plasma glucose measurement (mass/volume) 116 mg/dL 70-105 Serum or plasma calcium measurement (mass/volume) 9.1 mg/dL 8.5-10.1 Serum or plasma total bilirubin measurement (mass/volu me) 0.1 mg/dL 0.1-1.0 Serum or plasma alkaline phosphatase claudine surement (enzymatic activity/volume) 77 U/L 40-136 Serum or plasma aspartate aminotransfera se measurement (enzymatic activity/volume) 19 U/L 5-34 Serum or plasma alanine aminotransferase measurement (enzymatic activity/volume) 26 U/L 0-55 Serum or plasma protein measurement (mass/volume) 7.5 g/dL 6.4-8.2 Serum or plasma albumin measurement (mass/volume) 4.1 g/dL 3.2-4.5 Lipase - 02/24/16 20:05 Lipase 28 U/L 8-78 Complete urinalysis with reflex to cultu re - 02/24/16 20:13 Urine color determination YELLOW NRG Urine clarity determination SLIGHTLY CLOUDY NRG Urine pH measurement by test strip 7 5-9 Specific gravity of urine by test strip 1.015 1.016-1.022 Urine protein assay by test strip, semi-quantitative NEGATIVE NEGATIVE Urine glucose detection by automated test strip NE GATIVE NEGATIVE Erythrocytes detection in urine sediment by light micr oscopy NEGATIVE NEGATIVE Urine ketones detection by automated test strip NE GATIVE NEGATIVE Urine nitrite detection by test strip NEGATIVE NEGATIVE Urine total bilirubin detection by test strip NEGA TIVE NEGATIVE Urine urobilinogen measurement by automated test strip (mass/volume) NORMAL NORMAL Urine leukocyte esterase detection by dipstick NEG ATIVE NEGATIVE Automated urine sediment erythrocyte cou nt by microscopy (number/high power field) NONE NRG Automated urine sediment leukocyte count by microscopy (number/high power field) RARE NRG Bacteria detection in urine sediment by light microsco py TRACE NRG Squamous epithelial cells detection in u rine sediment by light microscopy RARE NRG Crystals detection in urine sediment by light microsco py PRESENT NRG Casts detection in urine sediment by light microscopy NONE NRG Mucus detection in urine sediment by light microscopy NEGATIVE NRG Complete urinalysis with reflex to culture NO NRG Amorphous sediment detection in urine sediment by ligh t microscopy LARGE DILCIA PHOSPHATE NRG Complete blood count (CBC) with automate d white blood cell (WBC) differential - 12/27/18 07:23 Blood leukocytes automated count (number/volume) 8.7 10*3/uL 4.3-11.0 Blood erythrocytes automated count (number/volume) 4.79 10*6/uL 4.35-5.85 Venous blood hemoglobin measurement (mass/volume) 13.2 g/dL 11.5-16.0 Blood hematocrit (volume fraction) 40 % 35-52 Automated erythrocyte mean corpuscular volume 83 [ foz_us] 80-99 Automated erythrocyte mean corpuscular h emoglobin (mass per erythrocyte) 28 pg 25-34 Automated erythrocyte mean corpuscular h emoglobin concentration measurement (mass/volume) 33 g/dL 32-36 Automated erythrocyte distribution width ratio 12. 9 % 10.0- 14.5 Automated blood platelet count (count/volume) 295 10*3/uL 130-400 Automated blood platelet mean volume measurement 9.8 [foz_us] 7.4-10.4 Automated blood neutrophils/100 leukocytes 66 % 42-75 Automated blood lymphocytes/100 leukocytes 26 % 12-44 Blood monocytes/100 leukocytes 8 % 0-12 Automated blood eosinophils/100 leukocytes 1 % 0-10 Automated blood basophils/100 leukocytes 0 % 0-10 Blood neutrophils automated count (number/volume) 5.7 10*3 1.8-7.8 Blood lymphocytes automated count (number/volume) 2.2 10*3 1.0-4.0 Blood monocytes automated count (number/volume) 0. 7 10*3 0.0-1.0 Automated eosinophil count 0.0 10*3/uL 0 .0-0.3 Automated blood basophil count (count/volume) 0.0 10*3/uL 0.0-0.1 Comprehensive metabolic panel - 12/27/18 07:23 Serum or plasma sodium measurement (moles/volume) 140 mmol/L 135-145 Serum or plasma potassium measurement (moles/volume) 4.0 mmol/L 3.6-5.0 Serum or plasma chloride measurement (moles/volume) 107 mmol/L 98-107 Carbon dioxide 24 mmol/L 21-32 Serum or plasma anion gap determination (moles/volume) 9 mmol/L 5-14 Serum or plasma urea nitrogen measurement (mass/volume ) 11 mg/dL 7-18 Serum or plasma creatinine measurement (mass/volume) 0.77 mg/dL 0.60-1.30 Serum or plasma urea nitrogen/creatinine mass ratio 14 NRG Serum or plasma creatinine measurement w ith calculation of estimated glomerular filtration rate > NRG Serum or plasma glucose measurement (mass/volume) 115 mg/dL 70-105 Serum or plasma calcium measurement (mass/volume) 9.4 mg/dL 8.5-10.1 Serum or plasma total bilirubin measurement (mass/volu me) 0.3 mg/dL 0.1-1.0 Serum or plasma alkaline phosphatase claudine surement (enzymatic activity/volume) 65 U/L 40-136 Serum or plasma aspartate aminotransfera se measurement (enzymatic activity/volume) 18 U/L 5-34 Serum or plasma alanine aminotransferase measurement (enzymatic activity/volume) 27 U/L 0-55 Serum or plasma protein measurement (mass/volume) 7.5 g/dL 6.4-8.2 Serum or plasma albumin measurement (mass/volume) 4.2 g/dL 3.2-4.5 CALCIUM CORRECTED 9.2 mg/dL 8.5-10.1 Urine beta human chorionic gonadotropin (hCG) measurement - 12/27/18 07:29 Urine beta human chorionic gonadotropin (hCG) measurem ent NEGATIVE NEGATIVE Complete urinalysis with reflex to cultu re - 12/27/18 07:29 Urine color determination YELLOW NRG Urine clarity determination CLEAR NR G Urine pH measurement by test strip 7.0 5-9 Specific gravity of urine by test strip <= 1.016-1.022 Urine protein assay by test strip, semi-quantitative NEGATIVE NEGATIVE Urine glucose detection by automated test strip NE GATIVE NEGATIVE Erythrocytes detection in urine sediment by light micr oscopy NEGATIVE NEGATIVE Urine ketones detection by automated test strip NE GATIVE NEGATIVE Urine nitrite detection by test strip NEGATIVE NEGATIVE Urine total bilirubin detection by test strip NEGA TIVE NEGATIVE Urine urobilinogen measurement by automated test strip (mass/volume) 0.2 mg/dL < = 1.0 Urine leukocyte esterase detection by dipstick NEG ATIVE NEGATIVE Automated urine sediment erythrocyte cou nt by microscopy (number/high power field) NONE NRG Automated urine sediment leukocyte count by microscopy (number/high power field) NONE NRG Bacteria detection in urine sediment by light microsco py NEGATIVE NRG Squamous epithelial cells detection in u rine sediment by light microscopy RARE NRG Crystals detection in urine sediment by light microsco py NONE NRG Casts detection in urine sediment by light microscopy NONE NRG Mucus detection in urine sediment by light microscopy NEGATIVE NRG Complete urinalysis with reflex to culture NO NRG MAGNESIUM SERUM - 03/08/19 10:38 MAGNESIUM 1.9 mg/dL 1.5-2.5 VITAMIN B12/FOLATE, SERUM PANEL - 10:38 VITAMIN B12 525 pg/mL 200-1100 FOLATE, SERUM 12.0 ng/mL NRG Encounters ACCT No. Visit Date/Time Discharge Status Pt. Type Provider Facility Loc./Unit Complaint [id number] 04/20/2019 14:23:00 04/20/2019 15:37 :00 DIS Outpatient KENDAL STERLING [facility] ER [id number] 05/26/2019 11:00:00 05/26/2019 23:59: 59 CLS Outpatient CHER CAMPBELL MD [facility] [id number] 03/08/2019 09:40:00 Document Registration [id number] 12/27/2018 06:49:00 019 09:50:00 DIS Outpatient BRE DOHERTY DO [facility] ER ABD PAIN [id number] 02/24/2016 19:44:00 017 21:56:00 DIS Emergency CHRIS HARRELL [facility] ER BLOODY STOOLS/ABD PAIN [id number] 04/05/2015 10:54:00 016 17:20:00 DIS Outpatient ADEOLA JALLOH MD [facility] SDC GALLSTONES [id number] 04/04/2015 13:16:00 016 23:59:59 CLS Outpatient ADEOLA JALLOH MD [facility] PREOP GALLSTONES [id number] 03/28/2015 08:44:00 016 23:59:59 CLS Outpatient CHER CAMPBELL MD [facility] RAD EPIGASTRIC PAIN [id number] 03/18/2015 01:43:00 016 03:19:00 DIS Emergency BRE DOHERTY DO [facility] ER NAUSEA;ABD PAIN [id number] 12/27/2014 22:03:00 015 00:10:00 DIS Emergency CHRIS HARRELL [facility] ER FEVER,NAUSEA [id number] 10/19/2014 21:17:00 015 22:50:00 DIS Emergency CHAS BRE ACE Ariane sofi [facility] ER HEART PALPITATIONS [id number] 03/06/2013 23:18:00 014 01:57:00 DIS Emergency CHAS BRE ACE [facility] ER RIGHT ANKLE INJ [id number] 07/15/2011 05:47:00 Document Registration [id number] 07/08/2011 09:01:00 Document Registration [id number] 05/04/2011 10:26:00 Document Registration [id number] 05/01/2011 21:57:00 Document Registration [id number] 06/20/2010 14:24:00 Document Registration [id number] 06/18/2010 15:26:00 Document Registration [id number] 05/23/2010 15:13:00 Document Registration [id number] 05/23/2010 10:43:00 Document Registration [id number] 04/10/2010 12:15:00 Document Registration [id number] 04/08/2010 01:38:00 Document Registration [id number] 10/25/2009 10:42:00 Document Registration
== END 2019-07-19 17:07 | disposition home or self-care (01) ==
LOC: EDUNIT# 16:04 → ER 16:06
DX: B86 Scabies (principal); E66.01 Morbid (severe) obesity due to excess calories; Z88.8 Allergy status to other drugs, medicaments and biological substances; Z77.22 Contact with and (suspected) exposure to environmental tobacco smoke (acute) (chronic); Z68.41 Body mass index [BMI] 40.0-44.9, adult
CPT/HCPCS: 99282

== ENCOUNTER 2020-06-02 20:12 | Emergency (ER) | payer SELFPAY ==
[~2020-06-02] VITALS: Ht 170 cm; Wt 127.0 kg
[~2020-06-02 20:12] MED LIST changes: +ESCI20TA39; -ESCI20TA45; -PANT40TA3; +PANT40TA52; +PERM60CR4 TP
[2020-06-02 20:15] VITALS: BP 147/110
[2020-06-02] MEDS ORDERED: AMOXICILLIN 500 MG (POLYMOX) CAP PO STA (21:08)
--- NOTE | 2020-06-02 21:08 | ED EENT ---
History of Present Illness General Chief Complaint: Ear Problems Stated Complaint: R EAR PAIN / RINGING Nursing Triage Note: PT AMBULATORY TO ED WITH C/O R EAR PAIN FOR THE LAST 3-4 DAYS. PT STATES IT STARTED GETTING BETTER YESTERDAY THEN SHE PUT WATER DROPS IN HER EAR AND NOW IT IS WORSE PAIN. SHE RATES HER PAIN AT 3/10 Source: patient Exam Limitations: no limitations History of Present Illness Date Seen by Provider: Jun 02, 2020 Time Seen by Provider: 20:15 Initial Comments Patient is a 24-year-old female who presents to the emergency department today with a chief complaint of right ear pain and hearing loss over the last 3 to 4 days. Patient states that yesterday she should syringed out her right ear with some water and she states it actually started feeling a little bit worse. She describes the pain as sharp and nonradiating. She has a mild associated headache. She does have a history of migraines and took some Tylenol yesterday. Patient states that she has a history of chronic bilateral tinnitus. This is bothering her only mildly. Patient states that her hearing is much decreased on the right with pain. She denies any fevers, chills, nasal congestion or cough. No other complaints of illness or injury. All other review of systems reviewed and negative except as stated above. Timing/Duration: gradual Location: ear (R) Prearrival Treatment: no prearrival treatment Associated Symptoms: change in hearing (Right ear) Allergies and Home Medications Allergies Coded Allergies: sertraline HCl (Unverified Allergy, Unknown, HIVES, 12/27/14) Home Medications Hyoscyamine Sulfate 0.125 Mg Tab.subl, 1-2 TAB SL Q4H Prescribed by: BRE DOHERTY on 12/27/18 0924 Ondansetron 8 Mg Tab.rapdis, 8 MG PO Q6H PRN for NAUSEA/VOMITING Prescribed by: CHRIS HEATH on 02/24/162142 Permethrin 60 Gm Cream..g., 60 GM TP ONCE Prescribed by: ABHINAV GALINDO on 07/19/19 1702 Patient Home Medication List Home Medication List Reviewed: Yes Review of Systems Review of Systems Constitutional: see HPI Eyes: No Symptoms Reported Ears: Pain (Right ear), Tinnitus (Chronic) Nose: no symptoms reported Mouth: no symptoms reported Throat: no symptoms reported Respiratory: no symptoms reported Cardiovascular: no symptoms reported Gastrointestinal: no symptoms reported Musculoskeletal: no symptoms reported Skin: no symptoms reported Neurological: Headache All Other Systems Reviewed Negative Unless Noted: Yes Past Ltldqpv-Ludyhd-Cbszxg Hx Patient Social History Alcohol Use: Denies Use 2nd Hand Smoke Exposure: Yes Recent Infectious Disease Expo: No Recent Hopitalizations: No Immunizations Up To Date Tetanus Booster (TDap): Unknown Seasonal Allergies Seasonal Allergies: No Past Medical History Surgeries: Yes (PILONIDAL CYST/ABSCESS REMOVED) Adenoidectomy, Gallbladder, Tonsillectomy Respiratory: No Cardiac: No Neurological: No Reproductive Disorders: No Female Reproductive Disorders: Denies Sexually Transmitted Disease: No HIV/AIDS: No Genitourinary: No Gastrointestinal: Yes (S/P OC) Gastroesophageal Reflux, Gall Bladder Disease Musculoskeletal: No Endocrine: Yes (MORBID OBESITY) HEENT: Yes Tonsilitis Cancer: No Psychosocial: Yes Anxiety, Depression Integumentary: Yes (PILONIDAL CYST/ABSCESS REMOVED) Blood Disorders: No Adverse Reaction/Blood Tranf: No Family Medical History No Pertinent Family Hx Physical Exam Vital Signs Vital Signs - First Documented 06/02/20 20:15 Temp 36.0 Pulse 116 Resp 20 B/P (MAP) 147/110 (122) Height, Weight, BMI Height: 5'7" Weight: 260lbs. oz. 117.567770ko; 43.00 BMI Method:Stated General Appearance: WD/WN, no apparent distress Eyes: bilateral eye normal inspection, bilateral eye PERRL, bilateral eye EOMI Ears: right ear erythema, right ear TM dull, right ear TM red, right ear TM bulging, right ear other (Loss of the normal light reflex); left ear auricle normal, left ear canal normal, left ear TM normal Nose: normal inspection Mouth/Throat: normal mouth inspection Cardiovascular: regular rate, rhythm, tachycardia Respiratory: lungs clear, normal breath sounds, no respiratory distress Gastrointestinal: non tender, soft Neurologic/Psychiatric: alert, normal mood/affect, oriented x 3, other (Mildly anxious owing to her social anxiety disorder.) Skin: normal color, warm/dry Progress/Results/Core Measures Results/Orders Vital Signs/I&O 06/02/20 20:15 Temp 36.0 Pulse 116 Resp 20 B/P (MAP) 147/110 (122) Blood Pressure Mean: 122 Departure Impression Primary Impression: Right otitis media Qualified Codes: H66.91 - Otitis media, unspecified, right ear Disposition: 01 HOME, SELF-CARE Condition: Stable Departure-Patient Inst. Decision time for Depature: 21:06 Referrals: CHER CAMPBELL MD (PCP/Family) Primary Care Physician Patient Instructions: Ear Infection ED Add. Discharge Instructions: Take the antibiotics as prescribed daily for the next week. Use a little [id number] Benadryl to try and decrease the amount of fluid in your ears. You can take this 2-3 times a day, 2 tablets which is 50 mg. Warm compresses to the right ear may aid in the discomfort. Follow-up with your primary care physician as needed. Return to the emergency room for worsening ear pain, fever, worsening headache or any other emergent concerning symptoms. Scripts Amoxicillin (Amoxicillin) 500 Mg Capsule 500 MG PO TID, #21 CAP 0 Refills Prov: VIRGILIO VÁSQUEZ MD 06/02/20 VIRGILIO VÁSQUEZ MD Jun 02, 2020 21:08
[2020-06-02] MEDS ORDERED: AMOX500C2 PO (21:09)
== END 2020-06-02 21:12 | disposition home or self-care (01) ==
LOC: EDUNIT# 20:12 → ER 20:15
DX: H66.91 Otitis media, unspecified, right ear (principal); E66.01 Morbid (severe) obesity due to excess calories; Z68.41 Body mass index [BMI] 40.0-44.9, adult; Z77.22 Contact with and (suspected) exposure to environmental tobacco smoke (acute) (chronic); Z88.8 Allergy status to other drugs, medicaments and biological substances
CPT/HCPCS: 99282